=== PATIENT | male | born 1950 | race Caucasian/White ===

== ENCOUNTER → 2022-12-09 10:49 | Outpatient (CLI) | payer MEDICARE, OTHER, SELFPAY ==
[2022-12-09 19:33] LABS: Add Manual Diff / Slide Review NO; Basophils Absolute Auto 0 /uL (0-100); Basophils Percent Auto 0.4 % (0-2); Eosinophils Absolute Auto 200 /uL (0-450); Eosinophils Percent Auto 4.2 % (2-4); Hematocrit 41.8 % (41-53); Hemoglobin 14.1 g/dL (13.5-17.5); Lymphocytes Absolute Auto 1000 /uL (1100-4500); Lymphocytes Percent Auto 16.5 % (25-40); Mean Corpuscular HGB Conc 33.7 % (30-36); Monocytes Absolute Auto 700 /uL (0-900); Monocytes Percent Auto 12.4 % (3-14); Neutrophils Absolute Auto 3900 /uL (1500-7000); Neutrophils Percent Auto 66.5 % (50-75); Platelet Count 260 X10^3/uL (150-400); Red Cell Distribution Width 13.4 % (11.6-14.8); White Blood Cell Count 5.8 X10^3/uL (4.5-11.0)
[2022-12-09 19:38] LABS: Alanine Aminotransferase 24 IU/L (<50); Albumin Globulin Ratio 1.3 (1.0-2.8); Alkaline Phosphatase 49 U/L (38-126); Aspartate Aminotransferase 31 IU/L (17-59); BUN Creatinine Ratio 18.6 (6-22); Bilirubin Total 0.6 mg/dL (0.2-1.3); Blood Urea Nitrogen 19 mg/dL (9-20); Calcium 9.9 mg/dL (8.4-10.2); Carbon Dioxide 29 mmol/L (22-32); Chloride 97 mmol/L (98-107); Cholesterol 179 mg/dL (140-199); Estimated Glomerular Filt Rate > 60 mL/min (>60); Globulin 3.1 g/dL (1.7-4.1); Glucose 84 mg/dL (80-110); HDL Cholesterol 44 mg/dL (40-60); HEMOLYSIS < 15 (0-50); LDL Cholesterol Calculated 118 mg/dL (<100); Potassium 4.5 mmol/L (3.4-5.1); Sodium 133 mmol/L (137-145); Total Protein 7.1 g/dL (6.3-8.2); Triglycerides 84 mg/dL (35-150)
[2022-12-09 19:39] LABS: Hemoglobin A1C% w Est Avg Glu 5.2 % (4.0-6.0)
[2022-12-09 19:58] LABS: Free T3, Triiodothyronine Free 5.46 pg/mL (2.77-5.27); Free T4, Direct Thyroxine 0.97 ng/dL (0.78-2.19)
[2022-12-09 20:12] LABS: Thyroid Stimulating Hormone 1.38 uIU/mL (0.47-4.68)
== END ==
PROVIDERS: PCP Family Medicine; Visit Provider Family Medicine
DX: E03.9 Hypothyroidism, unspecified (principal); N40.1 Benign prostatic hyperplasia with lower urinary tract symptoms; E34.9 Endocrine disorder, unspecified; R03.0 Elevated blood-pressure reading, without diagnosis of hypertension; R35.0 Frequency of micturition
CPT/HCPCS: 80053; 80061; 83036; 84153; 84439; 84443; 84481; 85025

== ENCOUNTER → 2023-02-01 14:26 | Outpatient (CLI) | payer MEDICARE, OTHER, SELFPAY ==
[2023-02-14 21:37] LABS: Percent Free Testosterone 1.81 % (1.50-4.20); Testosterone Free 6.81 ng/dL (5.00-21.00); Testosterone Total 376.1 ng/dL (264.0-916.0)
== END ==
PROVIDERS: PCP Family Medicine; Visit Provider Family Medicine
DX: E34.9 Endocrine disorder, unspecified (principal)
CPT/HCPCS: 84402; 84403

== ENCOUNTER → 2023-06-16 09:38 | Outpatient (CLI) | payer MEDICARE, OTHER, SELFPAY ==
[2023-06-16 19:55] LABS: Cholesterol 199 mg/dL (140-199); Glucose 86 mg/dL (80-110); HDL Cholesterol 41 mg/dL (40-60); LDL Cholesterol Calculated 136 mg/dL (<100); Triglycerides 109 mg/dL (35-150)
[2023-06-16 20:15] LABS: Add Manual Diff / Slide Review NO; Basophils Absolute Auto 0 /uL (0-100); Basophils Percent Auto 0.6 % (0-2); Eosinophils Absolute Auto 200 /uL (0-450); Eosinophils Percent Auto 4.5 % (2-4); Hematocrit 45.4 % (41-53); Hemoglobin 15.6 g/dL (13.5-17.5); Lymphocytes Absolute Auto 900 /uL (1100-4500); Lymphocytes Percent Auto 16.9 % (25-40); Mean Corpuscular HGB Conc 34.2 % (30-36); Mean Corpuscular Hemoglobin 30.3 PG (26-34); Mean Corpuscular Volume 88.4 fL (80-100); Monocytes Absolute Auto 600 /uL (0-900); Monocytes Percent Auto 10.8 % (3-14); Neutrophils Absolute Auto 3500 /uL (1500-7000); Neutrophils Percent Auto 67.2 % (50-75); Platelet Count 255 X10^3/uL (150-400); Red Blood Cell Count 5.14 X10^6/uL (4.5-5.9); White Blood Cell Count 5.2 X10^3/uL (4.5-11.0)
[2023-06-16 20:25] LABS: Prostate Specific Antigen Scrn 6.65 ng/mL (0.1-4.0)
[2023-06-18 17:51] LABS: Hep C Virus Ab w/Reflex Quant NEGATIVE s/c (NEGATIVE)
[2023-06-24 09:23] LABS: Percent Free Testosterone 1.82 % (1.50-4.20); Testosterone Free 10.95 ng/dL (5.00-21.00); Testosterone Total 601.6 ng/dL (264.0-916.0)
== END ==
PROVIDERS: PCP Family Medicine; Visit Provider Family Medicine
DX: Z12.5 Encounter for screening for malignant neoplasm of prostate (principal); Z85.89 Personal history of malignant neoplasm of other organs and systems; Z13.1 Encounter for screening for diabetes mellitus; E03.9 Hypothyroidism, unspecified; Z11.59 Encounter for screening for other viral diseases; Z13.220 Encounter for screening for lipoid disorders; E34.9 Endocrine disorder, unspecified; N40.0 Benign prostatic hyperplasia without lower urinary tract symptoms; Z79.890 Hormone replacement therapy; Z87.898 Personal history of other specified conditions
CPT/HCPCS: 80061; 82947; 84402; 84403; 85025; 86803; G0103

== ENCOUNTER → 2023-06-23 09:04 | Outpatient (CLI) | payer MEDICARE, OTHER, SELFPAY ==
[2023-06-25 15:35] LABS: Fecal Immunochemical Test Negative (Negative)
== END ==
PROVIDERS: PCP Family Medicine; Visit Provider Family Medicine
DX: Z12.11 Encounter for screening for malignant neoplasm of colon (principal)
CPT/HCPCS: 82274

== ENCOUNTER → 2023-06-30 10:48 | Outpatient (CLI) | payer MEDICARE, OTHER, SELFPAY ==
[2023-06-30 20:16] LABS: TSH w/ Reflex to FT4 1.91 uIU/mL (0.47-4.68)
== END ==
PROVIDERS: PCP Family Medicine; Visit Provider Family Medicine
DX: E03.9 Hypothyroidism, unspecified (principal)
CPT/HCPCS: 84443

== ENCOUNTER → 2023-08-24 10:47 | Outpatient (CLI) | payer MEDICARE, OTHER, SELFPAY ==
[2023-08-24 19:38] LABS: Vitamin D 25 Hydroxy (D3) 115 ng/mL (30.0-100.0)
[2023-08-27 07:52] LABS: PSA, Total 4.6 ng/mL (0.0-4.0)
== END ==
PROVIDERS: PCP Family Medicine; Visit Provider Family Medicine
DX: E55.9 Vitamin D deficiency, unspecified (principal); R97.20 Elevated prostate specific antigen [PSA]; Z85.89 Personal history of malignant neoplasm of other organs and systems
CPT/HCPCS: 82306; 84153; 84154

== ENCOUNTER → 2023-12-01 11:22 | Outpatient (CLI) | payer MEDICARE, OTHER, SELFPAY ==
[2023-12-01 20:10] LABS: Prostate Specific Antigen 5.49 ng/mL (0.10-4.00)
[2023-12-01 22:34] LABS: Vitamin D 25 Hydroxy (D3) 95.4 ng/mL (30.0-100.0)
[2023-12-06 08:16] LABS: Percent Free Testosterone 2.66 % (1.50-4.20); Testosterone Free 17.33 ng/dL (5.00-21.00); Testosterone Total 651.4 ng/dL (264.0-916.0)
== END ==
PROVIDERS: PCP Family Medicine; Visit Provider Family Medicine
DX: Z79.890 Hormone replacement therapy (principal); R97.20 Elevated prostate specific antigen [PSA]; E29.1 Testicular hypofunction; N40.0 Benign prostatic hyperplasia without lower urinary tract symptoms
CPT/HCPCS: 82306; 84153; 84402; 84403

== ENCOUNTER → 2023-12-07 13:11 | Outpatient (CLI) | payer MEDICARE, OTHER, SELFPAY | PROVIDERS: PCP Family Medicine; Visit Provider Family Medicine | DX: R31.9 Hematuria, unspecified (principal) | CPT/HCPCS: 87086 ==

== ENCOUNTER → 2023-12-14 11:03 | Outpatient (CLI) | payer MEDICARE, OTHER, SELFPAY ==
--- NOTE | 2023-12-14 11:06 | DI.CT.S_ITS ---
PROCEDURE: CT KIDNEY URETER BLADDER (KUB) INDICATIONS: Hematuria, unspecified TECHNIQUE: Axial sections were acquired from the lung bases to the pubic symphysis. Coronal and sagittal reformats were performed. For radiation dose reduction, the following was used: automated exposure control, adjustment of mA and/or kV according to patient size. COMPARISON: None. FINDINGS: Image quality: Diagnostic. Lower Chest: No significant findings. URINARY: Right Kidney: No stone or hydronephrosis Right Ureter: No hydroureter Left Kidney: No stone or hydronephrosis. 2 cm partially exophytic cystic lesion of the upper pole of the left kidney, incompletely evaluated. Left Ureter: No hydroureter Bladder: Decompressed and poorly evaluated ABDOMEN: Liver: No contour-deforming solid mass. Gallbladder: No radiopaque stone seen Biliary ducts: No biliary dilation Pancreas: No ductal dilation. Spleen: Size is within normal limits. Adrenal Glands: No adrenal nodules. Stomach and Bowel: Normal colonic caliber, without significant wall thickening. Peritoneum: No abnormal intraperitoneal fluid. No free air. Ventral Wall: No hernia. Abdominal Nodes: No enlarged retroperitoneal or mesenteric lymph nodes although study is limited by lack of IV contrast. Vessels: Aorta and inferior vena cava are normal in size. PELVIS: Pelvic Organs: Enlarged prostate noted with calcifications Pelvic Nodes: Unremarkable. Miscellaneous: No inguinal hernias are seen. Bones: Mild DJD of the spine. L4 facet on the right appears broken off. IMPRESSION: 1. No obstructing stones or hydronephrosis. 2. Left renal cystic lesion, most likely a simple cyst but incompletely evaluated without IV contrast. 3. Markedly enlarged prostate with calcifications. 4. L4 facet on the right appears broken off. This could be acute or chronic. Correlate with recent trauma and point tenderness. Dictated by: Prince Reyes M.D. on 12/14/2023 at 15:50 Approved by: Prince Reyes M.D. on 12/14/2023 at 16:01
== END ==
PROVIDERS: PCP Family Medicine; Referring Provider Family Medicine; Visit Provider Family Medicine
DX: N28.89 Other specified disorders of kidney and ureter (principal); N40.0 Benign prostatic hyperplasia without lower urinary tract symptoms; R31.9 Hematuria, unspecified; R97.20 Elevated prostate specific antigen [PSA]
CPT/HCPCS: 74176

== ENCOUNTER → 2024-01-06 09:05 | Outpatient (CLI) | payer MEDICARE, OTHER, SELFPAY ==
--- NOTE | 2024-01-06 09:08 | DI.CT.S_ITS ---
PROCEDURE: CT IVP A/P W/WO INDICATIONS: Hematuria TECHNIQUE: Optional 5 mm thick noncontrast images acquired from the diaphragm to the symphysis pubis. After the administration of intravenous contrast, 5 mm thick images acquired from the diaphragm to the symphysis pubis after a 10-minute delay. 2 mm thick coronal and sagittal reformats were then performed of the kidneys and ureters. For radiation dose reduction, the following was used: automated exposure control, adjustment of mA and/or kV according to patient size. COMPARISON: [facility], , MR PELVIC PROSTATE PROTOCOL, 01/06/2024, 10:21. FINDINGS: Image quality: Diagnostic. Kidneys and Ureters: Both kidneys are normal in size, without hydronephrosis or nephrolithiasis. No perinephric fat stranding. There is normal bilateral renal enhancement. Renal calyces appear normal in morphology when filled with contrast. Opacified portions of both ureters demonstrate normal caliber. Simple appearing left ovarian cyst measuring 2.9 centimeter; Bosniak 1. No complex renal cystic lesions which require follow-up. Bladder: Bladder wall thickness is normal. No calcified bladder stones. OTHER: Lower chest: Unremarkable. Liver: No solid mass. Gallbladder: No radiopaque gallstones or wall thickening. Biliary ducts: No biliary dilation. Pancreas: No ductal dilation. Pancreatic divisum. Spleen: Size is within normal limits. Adrenal Glands: No adrenal nodules. Stomach and Bowel: Normal colonic caliber, without significant wall thickening. Peritoneum: No abnormal intraperitoneal fluid. No free air. Ventral Wall: No hernia. Abdominal Nodes: No retroperitoneal or mesenteric adenopathy by size criteria. Vessels: Aorta and inferior vena cava are normal in size. PELVIS: Pelvic Organs: Prostatomegaly. Slight enhancement of the peripheral zone. Pelvic Nodes: No enlarged lymph nodes. Miscellaneous: No inguinal hernias are seen. Bones: No aggressive osseous abnormality. IMPRESSION: Benign bilateral renal cysts, requiring no further follow-up (Bosniak 1). Abnormal enhancement of the peripheral zone in the right prostate midgland. Please see same day prostate MRI. Pancreatic divisum. Dictated by: Genaro Ramirez M.D. on 01/06/2024 at 13:19 Approved by: Genaro Ramirez M.D. on 01/06/2024 at 13:24
--- NOTE | 2024-01-06 09:08 | DI.MRI.S_ITS ---
PROCEDURE: MR PELVIC PROSTATE PROTOCOL INDICATIONS: Elevated PSA TECHNIQUE: Coronal HASTE, axial T1 FSE with fat saturation, 3-plane nonbreath-hold T2 FSE. After the administration of contrast, dynamic axial, delayed axial and coronal VIBE or 2-D FLASH with fat saturation through the pelvis. Diffusion weighted imaging and ADC was performed. COMPARISON: None. FINDINGS: Image quality: Diffusion weighted and dynamic contrast enhanced images are diagnostic. Prostate: Gland size is 6.3 x 5.2 x 5.7 cm; ellipsoid gland volume is 97 mL. Lesion 1: Location: Posterior mid gland, peripheral zone, bilateral, on axial series 6, image 15 and coronal series 7, image 16. Size: 5 x 1.1 cm. T2W signal: Hypointense, wedge-shaped. DWI signal: mildly hyperintense. ADC signal: Markedly hypointense. Enhancement: Yes. Extracapsular extension: No. No neurovascular involvement. PI-RADS score: 4 (upgraded from 3) Lesion 2: Location: Anterior midline transition zone of the apex, on axial series 6, image 20 and sagittal series 8, image 13. Size: 1.1 x 0.8 cm. T2W signal: Hypointense. Nonencapsulated. DWI signal: Moderately hyperintense. ADC signal: Markedly hypointense. Enhancement: Yes. Extracapsular extension: No. No neurovascular involvement. PI-RADS score: 4 Genitourinary system: Bladder wall thickness is normal. Distal ureters are non distended. Moderate left testicular hydrocele. Bowel and peritoneum: No pathologic free pelvic fluid. Inferior colon and small bowel loops are normal in caliber. Nodes and vessels: No pelvic or inguinal adenopathy by size criteria. Iliac vessels are normal in caliber. Soft tissues: No inguinal hernias. Bones: Marrow demonstrates normal overall signal, without lesions to suggest metastases. Inflammatory changes about the posterior elements of L4, with superimposed facet arthrosis. IMPRESSION: PI-RADS 4 lesion in the posterior , bilateral mid gland. Imaging properties favor prostatitis. Additional PI-RADS 4 lesion in the anterior midline transition zone of the apex, more suspicious for a true lesion. No pelvic lymphadenopathy by size criteria. No aggressive osseous abnormality. Dictated by: Genaro Ramirez M.D. on 01/06/2024 at 13:24 Approved by: Genaro Ramirez M.D. on 01/06/2024 at 13:47
[2024-01-06 09:50] LABS: Blood Urea Nitrogen 15 mg/dL (9-20); Estimated Glomerular Filt Rate > 60 mL/min (>60)
== END ==
PROVIDERS: PCP Family Medicine; Referring Provider Specialist; Visit Provider Specialist
DX: N13.8 Other obstructive and reflux uropathy (principal); R31.9 Hematuria, unspecified; N40.1 Benign prostatic hyperplasia with lower urinary tract symptoms; R97.20 Elevated prostate specific antigen [PSA]; N28.1 Cyst of kidney, acquired; Q45.3 Other congenital malformations of pancreas and pancreatic duct; N42.9 Disorder of prostate, unspecified
CPT/HCPCS: 36415; 72197; 74178; 82565; 84520; Q9967

== ENCOUNTER → 2024-04-10 10:45 | Outpatient (CLI) | payer MEDICARE, OTHER, SELFPAY ==
[2024-04-10 20:06] LABS: Progesterone, Total 2.27 ng/mL
[2024-04-10 20:10] LABS: TSH w/ Reflex to FT4 1.35 uIU/mL (0.47-4.68)
[2024-04-13 12:05] LABS: Dehydroepiandrosterone Sulfate 85.1 ug/dL (30.9-295.6)
[2024-04-13 12:05] LABS: PSA Free % 19.5 % (.)
[2024-04-18 01:12] LABS: Percent Free Testosterone 3.19 % (1.50-4.20); Testosterone Free 14.52 ng/dL (5.00-21.00); Testosterone Total 455.2 ng/dL (264.0-916.0)
[2024-04-18 08:28] LABS: Estrogen 237 pg/mL (56-213)
== END ==
PROVIDERS: PCP Family Medicine; Visit Provider Specialist
DX: Z01.89 Encounter for other specified special examinations (principal); R97.20 Elevated prostate specific antigen [PSA]; N40.1 Benign prostatic hyperplasia with lower urinary tract symptoms; N13.8 Other obstructive and reflux uropathy; E29.1 Testicular hypofunction; Z79.890 Hormone replacement therapy
CPT/HCPCS: 82627; 82672; 84144; 84153; 84154; 84402; 84403; 84443

== ENCOUNTER → 2024-05-08 10:47 | Outpatient (CLI) | payer MEDICARE, OTHER, SELFPAY ==
[2024-05-08 19:35] LABS: Add Manual Diff / Slide Review NO; Basophils Absolute Auto 0 /uL (0-100); Basophils Percent Auto 0.5 % (0-2); Eosinophils Absolute Auto 200 /uL (0-450); Eosinophils Percent Auto 2.5 % (2-4); Hematocrit 42.4 % (41-53); Hemoglobin 14.6 g/dL (13.5-17.5); Lymphocytes Absolute Auto 1100 /uL (1100-4500); Lymphocytes Percent Auto 16.8 % (25-40); Mean Corpuscular HGB Conc 34.4 % (30-36); Mean Corpuscular Hemoglobin 30.3 PG (26-34); Mean Corpuscular Volume 88.3 fL (80-100); Monocytes Absolute Auto 700 /uL (0-900); Monocytes Percent Auto 11.4 % (3-14); Neutrophils Absolute Auto 4400 /uL (1500-7000); Neutrophils Percent Auto 68.8 % (50-75); Platelet Count 254 X10^3/uL (150-400); Red Blood Cell Count 4.81 X10^6/uL (4.5-5.9); White Blood Cell Count 6.5 X10^3/uL (4.5-11.0)
[2024-05-15 00:36] LABS: Testosterone Free 7.28 ng/dL (5.00-21.00); Testosterone Total 280.1 ng/dL (264.0-916.0)
== END ==
PROVIDERS: PCP Family Medicine; Visit Provider Family Medicine
DX: Z51.81 Encounter for therapeutic drug level monitoring (principal); Z79.890 Hormone replacement therapy
CPT/HCPCS: 84402; 84403; 85025

== ENCOUNTER → 2024-10-03 09:32 | Outpatient (CLI) | payer MEDICARE, OTHER, SELFPAY ==
[2024-10-03 20:05] LABS: Hemoglobin A1C% w Est Avg Glu 5.1 % (4.0-6.0)
[2024-10-03 20:08] LABS: Alanine Aminotransferase 26 IU/L (<50); Albumin 4.1 g/dL (3.5-5.0); Albumin Globulin Ratio 1.3 (1.0-2.8); Alkaline Phosphatase 50 U/L (38-126); Aspartate Aminotransferase 28 IU/L (17-59); BUN Creatinine Ratio 28.3 (6-22); Bilirubin Total 0.7 mg/dL (0.2-1.3); Blood Urea Nitrogen 39 mg/dL (9-20); Calcium 10.3 mg/dL (8.4-10.2); Carbon Dioxide 20 mmol/L (22-32); Chloride 104 mmol/L (98-107); Cholesterol 222 mg/dL (140-199); Estimated Glomerular Filt Rate 54 mL/min (>60); Globulin 3.1 g/dL (1.7-4.1); Glucose 91 mg/dL (80-110); HDL Cholesterol 57 mg/dL (40-60); HEMOLYSIS < 15 (0-50); LDL Cholesterol Calculated 151 mg/dL (<100); Potassium 4.5 mmol/L (3.4-5.1); Sodium 132 mmol/L (137-145); Total Protein 7.2 g/dL (6.3-8.2); Triglycerides 72 mg/dL (35-150)
[2024-10-03 20:39] LABS: Prostate Specific Antigen Scrn 8.21 ng/mL (0.1-4.0)
[2024-10-03 20:56] LABS: Hep C Virus Ab w/Reflex Quant NEGATIVE s/c (NEGATIVE)
== END ==
PROVIDERS: Urology; PCP Family Medicine; Referring Provider Family Medicine; Visit Provider Family Medicine
DX: Z13.6 Encounter for screening for cardiovascular disorders (principal); Z12.5 Encounter for screening for malignant neoplasm of prostate; Z13.1 Encounter for screening for diabetes mellitus; Z11.59 Encounter for screening for other viral diseases; N13.8 Other obstructive and reflux uropathy; N40.1 Benign prostatic hyperplasia with lower urinary tract symptoms; R35.0 Frequency of micturition; E29.1 Testicular hypofunction; R97.20 Elevated prostate specific antigen [PSA]
CPT/HCPCS: 80053; 80061; 83036; 84153; 84154; 84402; 84403; 86803; G0103

== ENCOUNTER → 2024-10-31 10:48 | Outpatient (CLI) | payer MEDICARE, OTHER, SELFPAY ==
[2024-10-31 18:57] LABS: BUN Creatinine Ratio 30.6 (6-22); Blood Urea Nitrogen 44 mg/dL (9-20); Calcium 10.2 mg/dL (8.4-10.2); Carbon Dioxide 26 mmol/L (22-32); Chloride 100 mmol/L (98-107); Estimated Glomerular Filt Rate 51 mL/min (>60); Glucose 89 mg/dL (80-110); HEMOLYSIS 17 (0-50); Potassium 4.5 mmol/L (3.4-5.1); Sodium 130 mmol/L (137-145)
== END ==
PROVIDERS: PCP Family Medicine; Visit Provider Family Medicine
DX: R79.89 Other specified abnormal findings of blood chemistry (principal)
CPT/HCPCS: 80048

== ENCOUNTER → 2024-11-14 13:00 | Outpatient (CLI) | payer MEDICARE, OTHER, SELFPAY ==
[2024-11-14 19:38] LABS: Phosphorous 3.7 mg/dL (2.3-3.7)
[2024-11-14 19:44] LABS: Appearance Urine UA CLEAR; Bilirubin Urine UA NEGATIVE (NEGATIVE); Color Urine UA YELLOW; Glucose Urine UA NEGATIVE (Negative); Ketones Urine UA NEGATIVE (NEGATIVE); Leukocyte Esterase Urine UA NEGATIVE (NEGATIVE); Nitrite Urine UA NEGATIVE (Negative); Occult Blood Urine UA NEGATIVE (Negative); Protein Urine UA NEGATIVE (Negative); Urobilinogen Urine UA 0.2 E.U./dL (0.2)
[2024-11-14 19:53] LABS: Vitamin D 25 Hydroxy (D3) 58.4 ng/mL (30.0-100.0)
[2024-11-14 19:54] LABS: Bacteria Urine Occasional (0-1); Culture Indicated Urine Cult Not Indicated; RBC Urine 0-1/HPF (0-5/HPF); Squamous Epithelial Cell Urine 0-1 /HPF (0-5/HPF); Urine Volume 10mL (spun); WBC Urine 0-1/HPF (0-5/HPF)
[2024-11-14 20:37] LABS: Microalbumin Urine Random < 0.6 mg/dL (0-1.6)
[2024-11-16 15:34] LABS: Hepatitis B Surface Antigen NEGATIVE s/c (NEGATIVE)
[2024-11-16 15:41] LABS: HIV 1 & 2 Ab/Ag 4th Gen Combo NEGATIVE (NEGATIVE); Hep C Virus Ab w/Reflex Quant NEGATIVE s/c (NEGATIVE)
[2024-11-17 13:36] LABS: ANA Screen, IFA Negative (.)
== END ==
PROVIDERS: PCP Family Medicine; Visit Provider Family Medicine
DX: T45.2X1A Poisoning by vitamins, accidental (unintentional), initial encounter (principal); N17.9 Acute kidney failure, unspecified
CPT/HCPCS: 81001; 82043; 82306; 82570; 84100; 86038; 86803; 87340; 87389

== ENCOUNTER → 2024-12-20 13:19 | Outpatient (CLI) | payer MEDICARE, SELFPAY ==
[2024-12-20 19:19] LABS: BUN Creatinine Ratio 27.8 (6-22); Blood Urea Nitrogen 40 mg/dL (9-20); Calcium 9.8 mg/dL (8.4-10.2); Carbon Dioxide 27 mmol/L (22-32); Chloride 97 mmol/L (98-107); Estimated Glomerular Filt Rate 51 mL/min (>60); Glucose 92 mg/dL (80-110); HEMOLYSIS 18 (0-50); Potassium 4.8 mmol/L (3.4-5.1); Sodium 127 mmol/L (137-145)
[2024-12-20 19:58] LABS: Appearance Urine UA CLEAR; Bilirubin Urine UA NEGATIVE (NEGATIVE); Color Urine UA YELLOW; Glucose Urine UA NEGATIVE (Negative); Ketones Urine UA NEGATIVE (NEGATIVE); Leukocyte Esterase Urine UA NEGATIVE (NEGATIVE); Nitrite Urine UA NEGATIVE (Negative); Occult Blood Urine UA NEGATIVE (Negative); Protein Urine UA NEGATIVE (Negative); Urobilinogen Urine UA 0.2 E.U./dL (0.2); pH Urine UA 5.5 (4.5-8.0)
[2024-12-20 20:06] LABS: Bacteria Urine Occasional (0-1); Culture Indicated Urine Cult Not Indicated; RBC Urine None Seen (0-5/HPF); Squamous Epithelial Cell Urine None Seen (0-5/HPF); Urine Volume 10mL (spun); WBC Urine None Seen (0-5/HPF)
== END ==
PROVIDERS: PCP Family Medicine; Visit Provider Family Medicine
DX: R79.89 Other specified abnormal findings of blood chemistry (principal)
CPT/HCPCS: 80048; 81001

== ENCOUNTER → 2025-01-11 09:46 | Outpatient (CLI) | payer MEDICARE, OTHER, SELFPAY ==
[2025-01-11 22:05] LABS: HEMOLYSIS < 15 (0-50)
[2025-01-11 22:06] LABS: Hematocrit 43.6 % (41-53)
[2025-01-11 22:17] LABS: Alanine Aminotransferase 33 IU/L (<50); Albumin Globulin Ratio 1.3 (1.0-2.8); Alkaline Phosphatase 46 U/L (38-126); Aspartate Aminotransferase 33 IU/L (17-59); Bilirubin Total 0.5 mg/dL (0.2-1.3); Bilirubin Unconjugated 0.5 mg/dL (0.0-1.1)
[2025-01-12 00:26] LABS: Testosterone 244 ng/dL (71.8-623)
== END ==
PROVIDERS: PCP Family Medicine; Visit Provider Urology
DX: N17.9 Acute kidney failure, unspecified (principal); E29.1 Testicular hypofunction; F52.32 Male orgasmic disorder; Z79.890 Hormone replacement therapy
CPT/HCPCS: 80076; 84403; 85014

== ENCOUNTER → 2025-02-14 10:48 | Outpatient (CLI) | payer MEDICARE, OTHER, SELFPAY ==
[2025-02-14 19:43] LABS: Add Manual Diff / Slide Review NO; Basophils Absolute Auto 0 /uL (0-100); Basophils Percent Auto 0.4 % (0-2); Eosinophils Absolute Auto 200 /uL (0-450); Eosinophils Percent Auto 2.5 % (2-4); Hematocrit 45.4 % (41-53); Hemoglobin 15.7 g/dL (13.5-17.5); Lymphocytes Absolute Auto 1100 /uL (1100-4500); Lymphocytes Percent Auto 12.2 % (25-40); Mean Corpuscular HGB Conc 34.5 % (30-36); Mean Corpuscular Hemoglobin 31.7 PG (26-34); Mean Corpuscular Volume 91.8 fL (80-100); Monocytes Absolute Auto 900 /uL (0-900); Monocytes Percent Auto 9.6 % (3-14); Neutrophils Absolute Auto 6800 /uL (1500-7000); Neutrophils Percent Auto 75.3 % (50-75); Platelet Count 235 X10^3/uL (150-400); Red Blood Cell Count 4.95 X10^6/uL (4.5-5.9); Red Cell Distribution Width 13.5 % (11.6-14.8); White Blood Cell Count 9.1 X10^3/uL (4.5-11.0)
[2025-02-14 19:56] LABS: BUN Creatinine Ratio 16.2 (6-22); Blood Urea Nitrogen 22 mg/dL (9-20); Calcium 10.2 mg/dL (8.4-10.2); Carbon Dioxide 26 mmol/L (22-32); Chloride 102 mmol/L (98-107); Cholesterol 213 mg/dL (140-199); Estimated Glomerular Filt Rate 55 mL/min (>60); Glucose 95 mg/dL (80-110); HDL Cholesterol 56 mg/dL (40-60); HEMOLYSIS < 15 (0-50); LDL Cholesterol Calculated 126 mg/dL (<100); Potassium 4.8 mmol/L (3.4-5.1); Sodium 136 mmol/L (137-145); Triglycerides 154 mg/dL (35-150)
[2025-02-14 20:20] LABS: Prostate Specific Antigen 6.32 ng/mL (0.10-4.00)
[2025-02-14 20:21] LABS: TSH w/ Reflex to FT4 2.18 uIU/mL (0.47-4.68)
== END ==
PROVIDERS: PCP Family Medicine; Visit Provider Family Medicine
DX: N17.9 Acute kidney failure, unspecified (principal); I10 Essential (primary) hypertension; R97.20 Elevated prostate specific antigen [PSA]; Z79.890 Hormone replacement therapy; Z13.220 Encounter for screening for lipoid disorders; E29.1 Testicular hypofunction
CPT/HCPCS: 80048; 80061; 84153; 84443; 85025

== ENCOUNTER → 2025-03-01 10:42 | Outpatient (CLI) | payer MEDICARE, OTHER, SELFPAY ==
[2025-03-01 19:41] LABS: C-Reactive Protein Quant < 0.5 mg/dL (<1.0)
[2025-03-01 19:54] LABS: Erythrocyte Sedimentation Rate 2 MM/HR (0-15)
== END ==
PROVIDERS: PCP Family Medicine; Visit Provider Family Medicine
DX: M79.10 Myalgia, unspecified site (principal)
CPT/HCPCS: 85651; 86038; 86140

== ENCOUNTER → 2025-03-29 08:18 | Outpatient (CLI) | payer MEDICARE, OTHER, SELFPAY ==
[2025-03-29 19:38] LABS: Prostate Specific Antigen 8.96 ng/mL (0.10-4.00)
[2025-03-29 19:40] LABS: Testosterone 1230 ng/dL (71.8-623)
== END ==
PROVIDERS: PCP Family Medicine; Visit Provider Urology
DX: E29.1 Testicular hypofunction (principal); R97.20 Elevated prostate specific antigen [PSA]
CPT/HCPCS: 84153; 84403

== ENCOUNTER → 2025-04-25 11:04 | Outpatient (CLI) | payer MEDICARE, OTHER, SELFPAY | PROVIDERS: PCP Family Medicine; Visit Provider Urology | DX: N40.1 Benign prostatic hyperplasia with lower urinary tract symptoms (principal); N13.8 Other obstructive and reflux uropathy; R97.20 Elevated prostate specific antigen [PSA]; E29.1 Testicular hypofunction; R35.1 Nocturia; Z68.20 Body mass index [BMI] 20.0-20.9, adult | CPT/HCPCS: 51798; 81002; 87086; 99214 ==

== ENCOUNTER → 2025-08-02 09:12 | Outpatient (CLI) | payer MEDICARE, OTHER, SELFPAY ==
[2025-08-02 19:54] LABS: Hematocrit 43.2 % (41-53)
[2025-08-02 19:58] LABS: Alanine Aminotransferase 28 IU/L (<50); Albumin 3.9 g/dL (3.5-5.0); Albumin Globulin Ratio 1.4 (1.0-2.8); Alkaline Phosphatase 52 U/L (38-126); Blood Urea Nitrogen 24 mg/dL (9-20); Calcium 9.7 mg/dL (8.4-10.2); Carbon Dioxide 24 mmol/L (22-32); Chloride 102 mmol/L (98-107); Estimated Glomerular Filt Rate > 60 mL/min (>60); Globulin 2.8 g/dL (1.7-4.1); Glucose 86 mg/dL (70-99); HEMOLYSIS 16 (0-50); Potassium 4.4 mmol/L (3.4-5.1); Sodium 132 mmol/L (137-145); Total Protein 6.7 g/dL (6.3-8.2)
[2025-08-02 20:29] LABS: Prostate Specific Antigen 6.46 ng/mL (0.10-4.00)
== END ==
PROVIDERS: PCP Family Medicine; Visit Provider Urology
DX: R97.20 Elevated prostate specific antigen [PSA] (principal); E29.1 Testicular hypofunction
CPT/HCPCS: 80053; 84153; 84403; 85014

== ENCOUNTER → 2025-09-26 09:49 | Outpatient (CLI) | payer MEDICARE, OTHER, SELFPAY ==
[2025-09-26 19:02] LABS: Cholesterol 185 mg/dL (140-199); Glucose 88 mg/dL (70-99); HDL Cholesterol 51 mg/dL (40-60); Triglycerides 75 mg/dL (35-150)
[2025-09-27 08:58] LABS: Hep C Virus Ab w/Reflex Quant NEGATIVE s/c (NEGATIVE)
== END ==
PROVIDERS: PCP Family Medicine; Visit Provider Family Medicine
DX: Z13.1 Encounter for screening for diabetes mellitus (principal); Z12.5 Encounter for screening for malignant neoplasm of prostate; Z13.6 Encounter for screening for cardiovascular disorders; Z11.59 Encounter for screening for other viral diseases; Z71.85 Encounter for immunization safety counseling
CPT/HCPCS: 80061; 82947; 86803; G0103